=== PATIENT | female | born 1940 | race Caucasian/White ===

== ENCOUNTER 2019-04-14 07:44 | Day surgery (SDC) | payer MEDICARE ==
[2019-04-14] VITALS (11 sets, daily range): BP systolic 137–165; BP diastolic 89–110
[~2019-04-14] VITALS: Ht 152.4 cm; Wt 65.6 kg
[2019-04-14] MEDS ORDERED: normal saline 1,000 ML IV SCH (08:15)
[2019-04-14] MEDS ORDERED: iohexol 350 MG/1 ML 200ml bottle ONE (08:55)
[2019-04-14] MEDS ORDERED: heparin 1,000unit/ml 10ml vial 10 ML ONE (08:55)
[2019-04-14] MEDS ORDERED: fentaNYL/PF 50MCG/1 ML 2ML syringe ONE (08:55)
[2019-04-14] MEDS ORDERED: midazolam 2 mg/2 ml injection ONE ×3 (08:55→10:19)
[2019-04-14] MEDS ORDERED: LIDOcaine 1% (10mg/ml)w/preservative injection 20ml MDV ONE (09:25)
[2019-04-14] MEDS ORDERED: RED600TA PO (09:27)
[2019-04-14] MEDS ORDERED: METO-411 PO (09:27)
[2019-04-14] MEDS ORDERED: COU1T PO (09:27)
[2019-04-14] MEDS ORDERED: FLEC100T2 PO (09:27)
[2019-04-14] MEDS ORDERED: ENOX40SY7 SUBCUT (09:28)
[2019-04-14 09:44] LABS: BASOPHILS % (AUTO) 0.6 % (0-1); EOSINOPHILS # (AUTO) 0.1 X10'3 (0-0.9); EOSINOPHILS % (AUTO) 1.4 % (0-6); HEMATOCRIT 41.6 % (35.0-45.0); HEMOGLOBIN 13.9 g/dl (12.0-16.0); LYMPHOCYTES # (AUTO) 0.8 X10'3 (1.1-4.8); LYMPHOCYTES % (AUTO) 18.5 % (21-51); MEAN CORPUSCULAR HEMOGLOBIN 34.2 PG (27.0-31.0); MEAN CORPUSCULAR HGB CONC 33.5 g/dL (33.0-36.5); MEAN CORPUSCULAR VOLUME 102.2 FL (78-98); MONOCYTES # (AUTO) 0.7 X10'3 (0-0.9); MONOCYTES % (AUTO) 15.6 % (2-12); NEUTROPHILS # (AUTO) 2.9 X10'3 (1.8-7.7); NEUTROPHILS % (AUTO) 63.9 % (42-75); PLATELET COUNT 263 X10'3 (140-440); RED BLOOD COUNT 4.07 X10'6 (4.20-5.60); RED CELL DISTRIBUTION WIDTH 13.4 % (11.5-14.5); WHITE BLOOD COUNT 4.5 X10'3 (4.5-11.0)
[2019-04-14 10:01] LABS: ALBUMIN 3.7 G/DL (3.4-5.0); ANION GAP 5 (8-16); BLOOD UREA NITROGEN 20 MG/DL (7-18); BUN/CREATININE RATIO 23.3 (6.6-38.0); CALCIUM 9.1 MG/DL (8.5-10.1); CHLORIDE 104 MMOL/L (99-107); CHOL/HDL RATIO 2.7 (0.00-4.99); CHOLESTEROL 163 MG/DL (0-200); CREATININE 0.86 MG/DL (0.40-0.90); GLUCOSE 91 MG/DL (70-104); HDL CHOLESTEROL 61 MG/DL (35-60); LDL CHOLESTEROL 80 MG/DL (50-100); POTASSIUM 4.5 MMOL/L (3.5-5.1); SODIUM 137 MMOL/L (135-145); TOTAL CARBON DIOXIDE 27.6 MMOL/L (24-32); TRIGLYCERIDES 102 MG/DL (20-135); eGFR 64 ML/MIN
[2019-04-14] MEDS ORDERED: protamine sulfate 10mg/ml inj. ONE (10:29)
[2019-04-14] MEDS ORDERED: ketorolac tromethamine 15mg/ml inj. IV ONE (15:25)
[2019-04-14] MEDS ORDERED: acetaminophen 325mg tablet PO ONE (15:25)
== END 2019-04-14 16:40 | disposition home or self-care (01) ==
LOC: SSTAY O 07:44
PROVIDERS: ATTEND Internal Medicine Cardiovascular Disease
DX: I70.211 Atherosclerosis of native arteries of extremities with intermittent claudication, right leg (principal); I70.202 Unspecified atherosclerosis of native arteries of extremities, left leg; I48.0 Paroxysmal atrial fibrillation; Z95.0 Presence of cardiac pacemaker; I42.8 Other cardiomyopathies; E83.52 Hypercalcemia; E78.5 Hyperlipidemia, unspecified; Z79.01 Long term (current) use of anticoagulants
CPT/HCPCS: 36245; 36415; 75630; 80048; 80061; 83735; 85025; 85610; C1769; C1894; J1644; J1885; J2001; J2250; J2720; J3010; J7030; Q9967; 75716; 99152; 99153; A4620; A6258

== ENCOUNTER 2019-05-15 09:12 | Day surgery (SDC) | payer MEDICARE ==
[~2019-05-15] VITALS: Ht 149.9 cm; Wt 65.4 kg
[~2019-05-15 09:12] MED LIST: COU1T PO; ENOX40SY7 SUBCUT; FLEC100T2 PO; METO-411 PO; RED600TA PO
[2019-05-15] MEDS ORDERED: ACET650T48 PO (09:38)
[2019-05-15] MEDS ORDERED: COU5T PO (09:38)
[2019-05-15] MEDS ORDERED: areds2 PO (09:38)
[2019-05-15] MEDS ORDERED: AMIO100T4 PO (09:38)
[2019-05-15 10:07] LABS: BASOPHILS % (AUTO) 0.8 % (0-1); HEMATOCRIT 43.7 % (35.0-45.0); HEMOGLOBIN 14.8 g/dl (12.0-16.0); LYMPHOCYTES # (AUTO) 0.9 X10'3 (1.1-4.8); LYMPHOCYTES % (AUTO) 21.1 % (21-51); MEAN CORPUSCULAR HEMOGLOBIN 33.9 PG (27.0-31.0); MEAN CORPUSCULAR HGB CONC 33.9 g/dL (33.0-36.5); MEAN CORPUSCULAR VOLUME 99.8 FL (78-98); MEAN PLATELET VOLUME 8.8 FL (7.4-10.4); MONOCYTES # (AUTO) 0.6 X10'3 (0-0.9); MONOCYTES % (AUTO) 14.4 % (2-12); NEUTROPHILS # (AUTO) 2.6 X10'3 (1.8-7.7); NEUTROPHILS % (AUTO) 62.7 % (42-75); PLATELET COUNT 278 X10'3 (140-440); RED BLOOD COUNT 4.38 X10'6 (4.20-5.60); WHITE BLOOD COUNT 4.2 X10'3 (4.5-11.0)
[2019-05-15] MEDS ORDERED: proCHLORperazine 10 MG/2 ml inj ONE (10:10)
[2019-05-15] MEDS ORDERED: fentaNYL/PF 50MCG/1 ML 2ML syringe ONE (10:10)
[2019-05-15] MEDS ORDERED: midazolam 2 mg/2 ml injection ONE (10:10)
[2019-05-15 10:11] VITALS: BP 140/94
[2019-05-15] MEDS ORDERED: heparin 1,000unit/ml 10ml vial 10 ML ONE (10:11)
[2019-05-15] MEDS ORDERED: iohexol 350 MG/ML 50ML vial IV ONE (10:11)
[2019-05-15] MEDS ORDERED: iohexol 350 MG/1 ML 200ml bottle ONE (10:11)
[2019-05-15] MEDS ORDERED: LIDOcaine 1% (10mg/ml)w/preservative injection 20ml MDV ONE (10:11)
[2019-05-15 10:14] LABS: ALBUMIN 3.9 G/DL (3.4-5.0); ANION GAP 7 (8-16); BLOOD UREA NITROGEN 25 MG/DL (7-18); BUN/CREATININE RATIO 25.5 (6.6-38.0); CALCIUM 9.4 MG/DL (8.5-10.1); CHLORIDE 103 MMOL/L (99-107); CREATININE 0.98 MG/DL (0.40-0.90); GLUCOSE 103 MG/DL (70-104); MAGNESIUM 2.1 MG/DL (1.5-2.4); POTASSIUM 4.5 MMOL/L (3.5-5.1); SODIUM 137 MMOL/L (135-145); TOTAL CARBON DIOXIDE 27.2 MMOL/L (24-32); eGFR 55 ML/MIN
[2019-05-15] MEDS ORDERED: normal saline 1,000 ML IV SCH (10:25)
[2019-05-15] MEDS ORDERED: diphenhydrAMINE 25mg capsule PO PRN (10:25)
== END 2019-05-15 10:45 | disposition home or self-care (01) ==
LOC: SSTAY O 09:12
PROVIDERS: ATTEND Internal Medicine Cardiovascular Disease
DX: I73.9 Peripheral vascular disease, unspecified (principal); Z53.8 Procedure and treatment not carried out for other reasons; I10 Essential (primary) hypertension; E21.3 Hyperparathyroidism, unspecified; I48.0 Paroxysmal atrial fibrillation; I49.5 Sick sinus syndrome; E78.5 Hyperlipidemia, unspecified; Z86.711 Personal history of pulmonary embolism; Z95.0 Presence of cardiac pacemaker; Z90.710 Acquired absence of both cervix and uterus; Z98.890 Other specified postprocedural states; Z98.51 Tubal ligation status; Z87.891 Personal history of nicotine dependence; Z72.89 Other problems related to lifestyle; Z79.899 Other long term (current) drug therapy; Z79.01 Long term (current) use of anticoagulants
CPT/HCPCS: 36415; 80048; 83735; 85025; 85610; J0780; J1644; J2001; J2250; J3010; J7030; Q0163; Q9967; 93005; C1769; C1894

== ENCOUNTER 2019-05-17 06:41 | Inpatient (IN) | payer MEDICARE ==
[~2019-05-17] VITALS: Ht 149.9 cm; Wt 64.8 kg
[2019-05-17] VITALS (31 sets, daily range): BP systolic 69–134; BP diastolic 47–92
[~2019-05-17 06:41] MED LIST changes: +ACET650T48 PO; +AMIO100T4 PO; -COU1T PO; +COU5T PO; -ENOX40SY7 SUBCUT; -FLEC100T2 PO; -RED600TA PO; +areds2 PO
[2019-05-17] MEDS ORDERED: midazolam 2 mg/2 ml injection ONE ×3 (06:50→09:00)
[2019-05-17] MEDS ORDERED: fentaNYL/PF 50MCG/1 ML 2ML syringe ONE ×2 (06:50→09:42)
[2019-05-17] MEDS ORDERED: iohexol 350 MG/1 ML 200ml bottle ONE (06:50)
[2019-05-17] MEDS ORDERED: iohexol 350 MG/ML 50ML vial IV ONE (06:50)
[2019-05-17] MEDS ORDERED: heparin 1,000unit/ml 10ml vial 10 ML ONE (06:50)
[2019-05-17] MEDS ORDERED: LIDOcaine 1% (10mg/ml)w/preservative injection 20ml MDV ONE (06:50)
[2019-05-17] MEDS ORDERED: diphenhydrAMINE 25mg capsule PO ONE (07:05)
[2019-05-17] MEDS: normal saline 1000ml 1,000 ML IV SCH ×4 (07:23→22:05)
[2019-05-17] MEDS ORDERED: protamine sulfate 10mg/ml inj. ONE (10:07)
[2019-05-17] MEDS ORDERED: heparin 1,000 UNITS/NS 500ml 500 ML ONE (10:47)
[2019-05-17] MEDS ORDERED: iohexol 350MG/ML 100ml bottle IV ONE ×2 (10:48→12:53)
[2019-05-17] MEDS ORDERED: proCHLORperazine 10 MG/2 ml inj ONE (11:16)
--- NOTE | 2019-05-17 11:30 | NUR ---
Pt returned from label machine operator, Dr. Alberto at bedside. Pt with large hematoma to left chest. BP 70's will continue to monitor.
[2019-05-17] MEDS ORDERED: ondansetron/PF 4mg/2ml inj IV PRN (12:25)
[2019-05-17] MEDS ORDERED: OXAZEpam 15mg capsule PO PRN (12:25)
[2019-05-17] MEDS ORDERED: HYDROcodone/acetaminophen 5mg/325mg tablet PO PRN (12:25)
[2019-05-17] MEDS ORDERED: proCHLORperazine 10 MG/2 ml inj IV PRN (12:25)
--- NOTE | 2019-05-17 12:30 | NUR ---
Es Montes at bedside, pt to get CTA Stat.
[2019-05-17 12:32] LABS: HEMATOCRIT 29.6 % (35.0-45.0); HEMOGLOBIN 9.9 g/dl (12.0-16.0); MEAN CORPUSCULAR HEMOGLOBIN 34.3 PG (27.0-31.0); MEAN CORPUSCULAR HGB CONC 33.5 g/dL (33.0-36.5); MEAN CORPUSCULAR VOLUME 102.5 FL (78-98); PLATELET COUNT 190 X10'3 (140-440); RED BLOOD COUNT 2.89 X10'6 (4.20-5.60); RED CELL DISTRIBUTION WIDTH 13.2 % (11.5-14.5); WHITE BLOOD COUNT 10.8 X10'3 (4.5-11.0)
--- NOTE | 2019-05-17 17:30 | NUR ---
Dr. Alberto at bedside, pt remains stable. BP 100's. Pt sitting up in bed, eating. Denies pain or discomfort at this time. Void via bedpan.
[2019-05-17 18:01] LABS: HEMATOCRIT 27.4 % (35.0-45.0); HEMOGLOBIN 9.2 g/dl (12.0-16.0); MEAN CORPUSCULAR HEMOGLOBIN 34.1 PG (27.0-31.0); MEAN CORPUSCULAR HGB CONC 33.7 g/dL (33.0-36.5); MEAN CORPUSCULAR VOLUME 101.1 FL (78-98); MEAN PLATELET VOLUME 8.5 FL (7.4-10.4); PLATELET COUNT 206 X10'3 (140-440); RED BLOOD COUNT 2.71 X10'6 (4.20-5.60); WHITE BLOOD COUNT 10.4 X10'3 (4.5-11.0)
[2019-05-17] MEDS: HYDROcodone/acetaminophen 10/325mg tab PO PRN (18:13)
--- NOTE | 2019-05-17 18:45 | NUR ---
[facility].
--- NOTE | 2019-05-17 19:50 | NUR ---
Patient in room . I have received report and had the opportunity to ask questions and assume patient care.
[2019-05-17] MEDS: metoprolol tartrate 25mg tablet PO SCH (20:00)
--- NOTE | 2019-05-17 20:56 | NUR ---
PT IN ROOM 2016. PT a&Ox4. pt oriented to room, call light, bed controls, and visiting hours. post procedure education provided on pacemaker placement. pt verbalized understanding. will continue to monitor
--- NOTE | 2019-05-17 21:07 | NUR ---
pt bp trending down from 92 systolic to 79 systolic. md batista notified. orders to hold Lopressor tonight and continue fluids at 200ml/hr ns. will continue to monitor
[2019-05-18] VITALS (30 sets, daily range): BP systolic 78–126; BP diastolic 43–89
[2019-05-18] MEDS: normal saline 1000ml 1,000 ML IV SCH ×5 (03:07→23:05)
[2019-05-18 07:09] LABS: HEMATOCRIT 23.2 % (35.0-45.0); HEMOGLOBIN 7.9 g/dl (12.0-16.0); MEAN CORPUSCULAR HEMOGLOBIN 34.4 PG (27.0-31.0); MEAN CORPUSCULAR HGB CONC 33.8 g/dL (33.0-36.5); MEAN CORPUSCULAR VOLUME 101.7 FL (78-98); MEAN PLATELET VOLUME 8.9 FL (7.4-10.4); PLATELET COUNT 170 X10'3 (140-440); RED BLOOD COUNT 2.29 X10'6 (4.20-5.60); RED CELL DISTRIBUTION WIDTH 13.4 % (11.5-14.5); WHITE BLOOD COUNT 7.6 X10'3 (4.5-11.0)
[2019-05-18] MEDS: metoprolol tartrate 25mg tablet PO SCH (07:49)
[2019-05-18 08:30] LABS: ALANINE AMINOTRANSFERASE 23 U/L (12-78); ALBUMIN 2.4 G/DL (3.4-5.0); ALBUMIN/GLOBULIN RATIO 1.1 (1.1-1.5); ALKALINE PHOSPHATASE 31 IU/L (46-116); ANION GAP 10 (8-16); ASPARTATE AMINO TRANSFERASE 18 U/L (10-37); BILIRUBIN,TOTAL 0.5 MG/DL (0.1-1.0); BLOOD UREA NITROGEN 23 MG/DL (7-18); CALCIUM 6.9 MG/DL (8.5-10.1); CHLORIDE 109 MMOL/L (99-107); CREATININE 0.96 MG/DL (0.40-0.90); GLUCOSE 109 MG/DL (70-104); POTASSIUM 3.8 MMOL/L (3.5-5.1); SODIUM 140 MMOL/L (135-145); TOTAL CARBON DIOXIDE 21.2 MMOL/L (24-32); TOTAL PROTEIN 4.5 G/DL (6.4-8.2); eGFR 56 ML/MIN
[2019-05-18] MEDS ORDERED: WARF10TA50 PO (12:25)
[2019-05-18] MEDS ORDERED: WARF-55 PO ×2 (12:25→12:30)
[2019-05-18] MEDS ORDERED: WARF10TA45 PO (12:30)
[2019-05-18] MEDS ORDERED: RED600CA2 PO (12:33)
[2019-05-18 16:07] LABS: HEMATOCRIT 28.7 % (35.0-45.0); HEMOGLOBIN 9.7 g/dl (12.0-16.0); MEAN CORPUSCULAR HEMOGLOBIN 32.6 PG (27.0-31.0); MEAN CORPUSCULAR HGB CONC 33.8 g/dL (33.0-36.5); MEAN CORPUSCULAR VOLUME 96.4 FL (78-98); MEAN PLATELET VOLUME 8.8 FL (7.4-10.4); PLATELET COUNT 168 X10'3 (140-440); RED BLOOD COUNT 2.97 X10'6 (4.20-5.60); RED CELL DISTRIBUTION WIDTH 16.9 % (11.5-14.5); WHITE BLOOD COUNT 6.8 X10'3 (4.5-11.0)
[2019-05-18] MEDS ORDERED: clopidogrel 300mg tablet PO ONE (16:40)
--- NOTE | 2019-05-18 18:25 | NUR ---
per not to give NS that is ordered at 200ml/hours. Post blood transfusion pt's blood pressure is in 110/50s.
--- NOTE | 2019-05-18 18:30 | NUR ---
Patient in room CICU 2016. I have received report from MARISSA Stoll and had the opportunity to ask questions and assume patient care. Patient is awake and alert seated up in chair at bedside. Patient denies any distress at this time. Call light in reach, non skid socks on. Patient educated on use of call light. Patient states she would like to wait for dinner trays to arrive.
--- NOTE | 2019-05-18 19:00 | NUR ---
Patient up moving herself back to bed. Patient assisted the remainder of the way. Education provided on use of call light. Patient agrees to use call light from now on.
[2019-05-18] MEDS: flecainide 50mg tablet PO SCH (20:00)
--- NOTE | 2019-05-18 20:01 | NUR ---
Phone call to Dr. Alberto. Patient states she does not take the Flecainide per her cardiologists order. She was changed to Amiodarone and Metoprolol. Per Dr. Alberto. D/C Flecainide and start Amiodarone 100mg 1 PO Daily.
[2019-05-18] MEDS: HYDROcodone/acetaminophen 10/325mg tab PO PRN (22:46)
[2019-05-19] VITALS (12 sets, daily range): BP systolic 111–144; BP diastolic 53–82
[2019-05-19] MEDS: normal saline 1000ml 1,000 ML IV SCH ×2 (04:05→09:05)
[2019-05-19 05:23] LABS: BASOPHILS % (AUTO) 0.4 % (0-1); EOSINOPHILS # (AUTO) 0.1 X10'3 (0-0.9); EOSINOPHILS % (AUTO) 1.3 % (0-6); HEMATOCRIT 25.9 % (35.0-45.0); LYMPHOCYTES # (AUTO) 1.1 X10'3 (1.1-4.8); LYMPHOCYTES % (AUTO) 21.4 % (21-51); MEAN CORPUSCULAR HEMOGLOBIN 33.2 PG (27.0-31.0); MEAN CORPUSCULAR HGB CONC 34.8 g/dL (33.0-36.5); MEAN CORPUSCULAR VOLUME 95.4 FL (78-98); MONOCYTES # (AUTO) 0.8 X10'3 (0-0.9); MONOCYTES % (AUTO) 15.1 % (2-12); NEUTROPHILS # (AUTO) 3.3 X10'3 (1.8-7.7); NEUTROPHILS % (AUTO) 61.8 % (42-75); PLATELET COUNT 164 X10'3 (140-440); RED BLOOD COUNT 2.72 X10'6 (4.20-5.60); RED CELL DISTRIBUTION WIDTH 17.3 % (11.5-14.5); WHITE BLOOD COUNT 5.3 X10'3 (4.5-11.0)
[2019-05-19 05:31] LABS: ALBUMIN 2.7 G/DL (3.4-5.0); ANION GAP 10 (8-16); BLOOD UREA NITROGEN 13 MG/DL (7-18); BUN/CREATININE RATIO 17.3 (6.6-38.0); CALCIUM 6.8 MG/DL (8.5-10.1); CHLORIDE 108 MMOL/L (99-107); CREATININE 0.75 MG/DL (0.40-0.90); GLUCOSE 98 MG/DL (70-104); POTASSIUM 3.8 MMOL/L (3.5-5.1); SODIUM 138 MMOL/L (135-145); TOTAL CARBON DIOXIDE 20.1 MMOL/L (24-32); eGFR 75 ML/MIN
--- NOTE | 2019-05-19 06:30 | NUR ---
Problems reprioritized. Patient report given, questions answered & plan of care reviewed with MARISSA Stoll.
[2019-05-19] MEDS ORDERED: pantoprazole 40mg Tablet.DR PO SCH (07:30)
[2019-05-19] MEDS: flecainide 50mg tablet PO SCH (08:00)
[2019-05-19] MEDS ORDERED: clopidogrel 75mg tablet PO SCH (08:00)
[2019-05-19] MEDS ORDERED: amiodarone 100mg tablet PO SCH (08:00)
[2019-05-19] MEDS ORDERED: CLOP75TA35 PO (10:53)
[2019-05-19] MEDS ORDERED: FERR325T32 PO (11:00)
[2019-05-19] MEDS ORDERED: COU3T PO (11:00)
--- NOTE | 2019-05-19 12:10 | NUR ---
Pt discharged to home at 1155. Accompanied with . In stable condition, discharge instruction provided, New meds called to pharmacy.
== END 2019-05-19 11:45 | disposition home or self-care (01) | DRG 908 ==
LOC: SSTAY O 06:41 → CICU 2S 20:23
PROVIDERS: ADMIT Internal Medicine Cardiovascular Disease; ATTEND Internal Medicine Cardiovascular Disease
PROC: 04CH3ZZ Extirpation of Matter from Right External Iliac Artery, Percutaneous Approach (ICD-10-PCS; 2019-05-17)
PROC: 04CK3ZZ Extirpation of Matter from Right Femoral Artery, Percutaneous Approach (ICD-10-PCS; 2019-05-17)
PROC: 047K3DZ Dilation of Right Femoral Artery with Intraluminal Device, Percutaneous Approach (ICD-10-PCS; 2019-05-17)
PROC: 047H3DZ Dilation of Right External Iliac Artery with Intraluminal Device, Percutaneous Approach (ICD-10-PCS; 2019-05-17)
PROC: 03763DZ Dilation of Left Axillary Artery with Intraluminal Device, Percutaneous Approach (ICD-10-PCS; 2019-05-17)
PROC: 30233N1 Transfusion of Nonautologous Red Blood Cells into Peripheral Vein, Percutaneous Approach (ICD-10-PCS; principal; 2019-05-18)
DX: I97.621 Postprocedural hematoma of a circulatory system organ or structure following other procedure (principal); I48.3 Typical atrial flutter; D68.59 Other primary thrombophilia; I42.8 Other cardiomyopathies; I70.211 Atherosclerosis of native arteries of extremities with intermittent claudication, right leg; I48.0 Paroxysmal atrial fibrillation; I34.0 Nonrheumatic mitral (valve) insufficiency; I49.5 Sick sinus syndrome; I35.8 Other nonrheumatic aortic valve disorders; D21.9 Benign neoplasm of connective and other soft tissue, unspecified; E83.52 Hypercalcemia; E78.5 Hyperlipidemia, unspecified; Z95.0 Presence of cardiac pacemaker; Z79.01 Long term (current) use of anticoagulants; Y92.89 Other specified places as the place of occurrence of the external cause
CPT/HCPCS: 36215; 36245; 36415; 37221; 37227; 37236; 73206; 80048; 80053; 84132; 85025; 85027; 85347; 86885; 86900; 86901; 86920; 99152; 99153; A4620; A6258; C1714; C1725; C1760; C1769; C1876; C1887; C1894; C2623; G0378; J0780; J1644; J2001; J2250; J2405; J2720; J3010; J7030; P9016; Q0163; Q9967

== ENCOUNTER 2019-06-23 10:50 | Day surgery (SDC) | payer MEDICARE ==
[~2019-06-23] VITALS: Ht 154.9 cm; Wt 64.2 kg
[2019-06-23] VITALS (18 sets, daily range): BP systolic 127–164; BP diastolic 76–96
[~2019-06-23 10:50] MED LIST changes: +CLOP75TA35 PO; +COU3T PO; -COU5T PO; +FERR325T32 PO; -METO-411 PO; +RED600CA2 PO; +WARF-55 PO
[2019-06-23] MEDS ORDERED: fentaNYL/PF 50MCG/1 ML 2ML syringe IV ONE (11:10)
[2019-06-23] MEDS ORDERED: MIDAZolam 5mg/ml 2ml vial IV ONE (11:10)
[2019-06-23 11:39] LABS: BASOPHILS % (AUTO) 0.6 % (0-1); EOSINOPHILS # (AUTO) 0.1 X10'3 (0-0.9); EOSINOPHILS % (AUTO) 1.4 % (0-6); HEMATOCRIT 30.7 % (35.0-45.0); HEMOGLOBIN 10.5 g/dl (12.0-16.0); LYMPHOCYTES # (AUTO) 0.9 X10'3 (1.1-4.8); MEAN CORPUSCULAR HEMOGLOBIN 35.8 PG (27.0-31.0); MEAN CORPUSCULAR HGB CONC 34.1 g/dL (33.0-36.5); MEAN CORPUSCULAR VOLUME 105.2 FL (78-98); MEAN PLATELET VOLUME 7.5 FL (7.4-10.4); MONOCYTES # (AUTO) 0.7 X10'3 (0-0.9); MONOCYTES % (AUTO) 17.2 % (2-12); NEUTROPHILS # (AUTO) 2.2 X10'3 (1.8-7.7); NEUTROPHILS % (AUTO) 57.8 % (42-75); PLATELET COUNT 429 X10'3 (140-440); RED BLOOD COUNT 2.92 X10'6 (4.20-5.60); RED CELL DISTRIBUTION WIDTH 18.5 % (11.5-14.5); WHITE BLOOD COUNT 3.9 X10'3 (4.5-11.0)
[2019-06-23 11:50] LABS: ALBUMIN 3.7 G/DL (3.4-5.0); ANION GAP 8 (8-16); BLOOD UREA NITROGEN 23 MG/DL (7-18); BUN/CREATININE RATIO 22.3 (6.6-38.0); CALCIUM 9.8 MG/DL (8.5-10.1); CHLORIDE 103 MMOL/L (99-107); CREATININE 1.03 MG/DL (0.40-0.90); GLUCOSE 94 MG/DL (70-104); POTASSIUM 4.3 MMOL/L (3.5-5.1); SODIUM 137 MMOL/L (135-145); TOTAL CARBON DIOXIDE 26.4 MMOL/L (24-32); eGFR 52 ML/MIN
--- NOTE | 2019-06-23 13:25 | NUR ---
Notified dr. Alberto of 4.8 INR critical lab, no new orders at this time. He states he will tell her to stop taking her coumadin for a few days when he comes in for Cardioversion.
== END 2019-06-23 16:55 | disposition home or self-care (01) ==
LOC: SSTAY O 10:50
PROVIDERS: ATTEND Internal Medicine Cardiovascular Disease
DX: I48.0 Paroxysmal atrial fibrillation (principal); I48.3 Typical atrial flutter; I10 Essential (primary) hypertension; E21.3 Hyperparathyroidism, unspecified; E78.5 Hyperlipidemia, unspecified; Z86.711 Personal history of pulmonary embolism; Z79.01 Long term (current) use of anticoagulants; Z79.899 Other long term (current) drug therapy; Z95.0 Presence of cardiac pacemaker
CPT/HCPCS: 80048; 83735; 85025; 85610; 92960; J2250; J3010

== ENCOUNTER 2019-07-27 07:51 | Day surgery (SDC) | payer MEDICARE ==
[~2019-07-27] VITALS: Ht 154.9 cm; Wt 60.6 kg
[2019-07-27] VITALS (13 sets, daily range): BP systolic 120–149; BP diastolic 57–100
[~2019-07-27 07:51] MED LIST changes: -ACET650T48 PO; -CLOP75TA35 PO; -COU3T PO; -FERR325T32 PO; -RED600CA2 PO; -areds2 PO
[2019-07-27] MEDS ORDERED: normal saline 1,000 ML IV SCH (08:15)
[2019-07-27] MEDS ORDERED: diphenhydrAMINE 25mg capsule PO PRN (08:15)
[2019-07-27] MEDS ORDERED: RED600TA PO (08:37)
[2019-07-27] MEDS ORDERED: midazolam 2 mg/2 ml injection ONE (08:54)
[2019-07-27] MEDS ORDERED: fentaNYL/PF 50MCG/1 ML 2ML syringe ONE (08:54)
[2019-07-27] MEDS ORDERED: iohexol 350 MG/ML 50ML vial IV ONE (08:55)
[2019-07-27] MEDS ORDERED: LIDOcaine 1% (10mg/ml)w/preservative injection 20ml MDV ONE (08:55)
[2019-07-27] MEDS ORDERED: iohexol 350MG/ML 100ml bottle IV ONE (08:55)
[2019-07-27 09:29] LABS: BASOPHILS % (AUTO) 0.8 % (0-1); EOSINOPHILS # (AUTO) 0.1 X10'3 (0-0.9); EOSINOPHILS % (AUTO) 2.1 % (0-6); HEMATOCRIT 37.9 % (35.0-45.0); HEMOGLOBIN 12.6 g/dl (12.0-16.0); LYMPHOCYTES # (AUTO) 0.9 X10'3 (1.1-4.8); LYMPHOCYTES % (AUTO) 21.6 % (21-51); MEAN CORPUSCULAR HEMOGLOBIN 32.5 PG (27.0-31.0); MEAN CORPUSCULAR HGB CONC 33.1 g/dL (33.0-36.5); MEAN PLATELET VOLUME 8.6 FL (7.4-10.4); MONOCYTES # (AUTO) 0.7 X10'3 (0-0.9); MONOCYTES % (AUTO) 15.6 % (2-12); NEUTROPHILS # (AUTO) 2.5 X10'3 (1.8-7.7); NEUTROPHILS % (AUTO) 59.9 % (42-75); PLATELET COUNT 422 X10'3 (140-440); RED BLOOD COUNT 3.87 X10'6 (4.20-5.60); RED CELL DISTRIBUTION WIDTH 15.8 % (11.5-14.5); WHITE BLOOD COUNT 4.2 X10'3 (4.5-11.0)
[2019-07-27 09:32] LABS: ALBUMIN 4.2 G/DL (3.4-5.0); ANION GAP 7 (8-16); BLOOD UREA NITROGEN 22 MG/DL (7-18); BUN/CREATININE RATIO 19.8 (6.6-38.0); CALCIUM 9.9 MG/DL (8.5-10.1); CHLORIDE 102 MMOL/L (99-107); CREATININE 1.11 MG/DL (0.40-0.90); GLUCOSE 97 MG/DL (70-104); MAGNESIUM 2.2 MG/DL (1.5-2.4); POTASSIUM 4.6 MMOL/L (3.5-5.1); SODIUM 138 MMOL/L (135-145); TOTAL CARBON DIOXIDE 29.1 MMOL/L (24-32); eGFR 48 ML/MIN
[2019-07-27] MEDS ORDERED: diphenhydrAMINE 50 mg/ml inj ONE (09:38)
[2019-07-27] MEDS ORDERED: metoprolol tartrate 1mg/ml inj IV ONE ×3 (09:45→09:58)
[2019-07-27] MEDS ORDERED: heparin 1,000unit/ml 10ml vial 10 ML ONE (09:55)
[2019-07-27] MEDS ORDERED: clopidogrel 300mg tablet ONE (10:45)
[2019-07-27] MEDS ORDERED: normal saline 1000ml 1,000 ML IV SCH (12:05)
[2019-07-27] MEDS ORDERED: HYDROcodone/acetaminophen 5mg/325mg tablet PO PRN (15:55)
[2019-07-27] MEDS ORDERED: HYDROcodone/acetaminophen 10/325mg tab PO PRN (16:00)
== END 2019-07-27 18:25 | disposition home or self-care (01) ==
LOC: SSTAY O 07:51
PROVIDERS: ATTEND Internal Medicine Cardiovascular Disease
DX: I70.8 Atherosclerosis of other arteries (principal); I10 Essential (primary) hypertension; I48.0 Paroxysmal atrial fibrillation; E83.52 Hypercalcemia; E78.5 Hyperlipidemia, unspecified; Z95.0 Presence of cardiac pacemaker; Z86.711 Personal history of pulmonary embolism; Z90.710 Acquired absence of both cervix and uterus; Z98.890 Other specified postprocedural states; Z72.89 Other problems related to lifestyle; Z79.01 Long term (current) use of anticoagulants
CPT/HCPCS: 36215; 36415; 37246; 75710; 80048; 83735; 85025; 85610; 93005; C1725; C1769; C1887; C1894; J1200; J1644; J2001; J2250; J3010; J7030; Q9967; 99152; 99153; A4620; A6258; C1760; C2623; J3490

== ENCOUNTER 2020-02-26 07:52 | Day surgery (SDC) | payer MEDICARE ==
[2020-02-26] VITALS (9 sets, daily range): BP systolic 109–128; BP diastolic 67–84
[~2020-02-26] VITALS: Ht 154.9 cm; Wt 61.3 kg
[~2020-02-26 07:52] MED LIST changes: +RED600TA PO
[2020-02-26] MEDS ORDERED: diphenhydrAMINE 25mg capsule PO PRN (08:15)
[2020-02-26] MEDS ORDERED: normal saline 1,000 ML IV SCH (08:15)
[2020-02-26] MEDS ORDERED: iohexol 350MG/ML 100ml bottle IV ONE (09:04)
[2020-02-26] MEDS ORDERED: fentaNYL/PF 50MCG/1 ML 2ML syringe ONE (09:04)
[2020-02-26] MEDS ORDERED: midazolam 2 mg/2 ml injection ONE ×2 (09:04→10:19)
[2020-02-26] MEDS ORDERED: heparin 1,000unit/ml 10ml vial 10 ML ONE (09:04)
[2020-02-26] MEDS ORDERED: LIDOcaine 1% (10mg/ml)w/preservative injection 20ml MDV ONE (09:04)
[2020-02-26 09:21] LABS: BASOPHILS # (AUTO) 0.1 X10'3 (0-0.2); BASOPHILS % (AUTO) 0.3 % (0-1); EOSINOPHILS % (AUTO) 0 % (0-6); HEMATOCRIT 33.3 % (35.0-45.0); LYMPHOCYTES # (AUTO) 0.2 X10'3 (1.1-4.8); MEAN CORPUSCULAR HEMOGLOBIN 30.2 PG (27.0-31.0); MEAN CORPUSCULAR VOLUME 91.7 FL (78-98); MEAN PLATELET VOLUME 8.4 FL (7.4-10.4); MONOCYTES # (AUTO) 0.1 X10'3 (0-0.9); MONOCYTES % (AUTO) 0.7 % (2-12); NEUTROPHILS # (AUTO) 19.7 X10'3 (1.8-7.7); PLATELET COUNT 265 X10'3 (140-440); RED BLOOD COUNT 3.63 X10'6 (4.20-5.60); RED CELL DISTRIBUTION WIDTH 18.9 % (11.5-14.5); WHITE BLOOD COUNT 20.1 X10'3 (4.5-11.0)
[2020-02-26] MEDS ORDERED: METO50TA17 PO (09:26)
[2020-02-26] MEDS ORDERED: AMLO5TAB4 PO (09:26)
[2020-02-26] MEDS ORDERED: CALC-336 PO (09:26)
[2020-02-26] MEDS ORDERED: BETA1TAB20 PO (09:26)
[2020-02-26] MEDS ORDERED: WARF-113 PO (09:26)
[2020-02-26 09:31] LABS: ALBUMIN 3.1 G/DL (3.4-5.0); ANION GAP 10 (8-16); BLOOD UREA NITROGEN 22 MG/DL (7-18); BUN/CREATININE RATIO 22.7 (6.6-38.0); CALCIUM 8.9 MG/DL (8.5-10.1); CHLORIDE 101 MMOL/L (99-107); CREATININE 0.97 MG/DL (0.40-0.90); GLUCOSE 139 MG/DL (70-104); MAGNESIUM 2.2 MG/DL (1.5-2.4); POTASSIUM 4.2 MMOL/L (3.5-5.1); SODIUM 137 MMOL/L (135-145); TOTAL CARBON DIOXIDE 26.2 MMOL/L (24-32); eGFR 55 ML/MIN
[2020-02-26] MEDS ORDERED: clopidogrel 300mg tablet ONE (10:38)
[2020-02-26] MEDS ORDERED: normal saline 1000ml 1,000 ML IV SCH (11:40)
--- NOTE | 2020-02-26 12:25 | NUR ---
Pt in a flutter (with known hx) rate up as high as 160-180, non-sustained but frequent. bp's stable. Msg left for Dr Alberto
[2020-02-26] MEDS ORDERED: metoprolol tartrate 1mg/ml inj IV SCH (13:15)
[2020-02-26] MEDS ORDERED: metoprolol tartrate 1mg/ml inj IV ONE (14:20)
== END 2020-02-26 16:00 | disposition home or self-care (01) ==
LOC: SSTAY O 07:52
PROVIDERS: ATTEND Internal Medicine Cardiovascular Disease
DX: I77.1 Stricture of artery (principal); I73.9 Peripheral vascular disease, unspecified; Z95.0 Presence of cardiac pacemaker
CPT/HCPCS: 37236; 80048; 83735; 85025; 85610; 93005; C1725; C1760; C1769; C1876; C1887; C1894; J1644; J2001; J2250; J3010; Q9967; 36215; 99152; 99153; A4620; A6258; J3490

== ENCOUNTER 2020-12-02 07:26 | Day surgery (SDC) | payer MEDICARE ==
[~2020-12-02] VITALS: Ht 154.9 cm; Wt 53.0 kg
[2020-12-02] VITALS (16 sets, daily range): BP systolic 144–165; BP diastolic 90–102
[~2020-12-02 07:26] MED LIST changes: +AMLO5TAB4 PO; +BETA1TAB20 PO; +CALC-336 PO; +METO50TA17 PO; +WARF-113 PO; -WARF-55 PO
[2020-12-02] MEDS ORDERED: diphenhydrAMINE 25mg capsule PO PRN (07:50)
[2020-12-02] MEDS ORDERED: normal saline 1,000 ML IV SCH (07:50)
[2020-12-02] MEDS ORDERED: CALC600T21 PO (08:02)
[2020-12-02] MEDS ORDERED: APIX5TAB3 PO (08:02)
[2020-12-02] MEDS ORDERED: TRAZ-251 PO (08:02)
[2020-12-02] MEDS ORDERED: HYDR-3686 PO (08:02)
[2020-12-02] MEDS ORDERED: POTA8CAP20 PO (08:02)
[2020-12-02] MEDS ORDERED: BUME0.5T6 PO (08:02)
[2020-12-02] MEDS ORDERED: DENO60DI SUBCUT (08:02)
[2020-12-02] MEDS ORDERED: CLOP75TA15 PO (08:02)
[2020-12-02 08:28] LABS: ALBUMIN 3.7 G/DL (3.4-5.0); ANION GAP 11 (8-16); BLOOD UREA NITROGEN 26 MG/DL (7-18); BUN/CREATININE RATIO 25.2 (6.6-38.0); CALCIUM 9.3 MG/DL (8.5-10.1); CHLORIDE 105 MMOL/L (99-107); CREATININE 1.03 MG/DL (0.40-0.90); GLUCOSE 107 MG/DL (70-104); MAGNESIUM 2.2 MG/DL (1.5-2.4); POTASSIUM 4.1 MMOL/L (3.5-5.1); SODIUM 141 MMOL/L (135-145); TOTAL CARBON DIOXIDE 25.5 MMOL/L (24-32); eGFR 52 ML/MIN
[2020-12-02 08:30] LABS: BASOPHILS % (AUTO) 0.8 % (0-1); EOSINOPHILS % (AUTO) 0.8 % (0-6); HEMATOCRIT 36.7 % (35.0-45.0); HEMOGLOBIN 11.8 g/dl (12.0-16.0); LYMPHOCYTES # (AUTO) 0.7 X10'3 (1.1-4.8); LYMPHOCYTES % (AUTO) 20.3 % (21-51); MEAN CORPUSCULAR HEMOGLOBIN 34.5 PG (27.0-31.0); MEAN CORPUSCULAR HGB CONC 32.1 g/dL (33.0-36.5); MEAN CORPUSCULAR VOLUME 107.4 FL (78-98); MEAN PLATELET VOLUME 8.1 FL (7.4-10.4); MONOCYTES # (AUTO) 0.6 X10'3 (0-0.9); MONOCYTES % (AUTO) 18.5 % (2-12); NEUTROPHILS % (AUTO) 59.6 % (42-75); PLATELET COUNT 311 X10'3 (140-440); RED BLOOD COUNT 3.42 X10'6 (4.20-5.60); RED CELL DISTRIBUTION WIDTH 17.4 % (11.5-14.5); WHITE BLOOD COUNT 3.3 X10'3 (4.5-11.0)
[2020-12-02] MEDS ORDERED: midazolam 1 mg/ML 2ml injection ONE (08:42)
[2020-12-02] MEDS ORDERED: fentaNYL/PF 50MCG/1 ML 2ML syringe ONE ×2 (08:42→10:12)
[2020-12-02] MEDS ORDERED: heparin 1,000unit/ml 10ml vial 10 ML ONE (08:42)
[2020-12-02] MEDS ORDERED: LIDOcaine 1% (10mg/ml)w/preservative injection 20ml MDV ONE (08:42)
[2020-12-02] MEDS ORDERED: iohexol 350MG/ML 100ml bottle IV ONE (08:43)
[2020-12-02 09:56] LABS: TOTAL CELLS COUNTED 100
[2020-12-02 09:58] LABS: ANISOCYTOSIS 1+; PLATELET ESTIMATE NORMAL
[2020-12-02] MEDS ORDERED: clopidogrel 300mg tablet ONE (10:30)
[2020-12-02] MEDS ORDERED: metoprolol tartrate 50mg tablet PO SCH (11:08)
[2020-12-02] MEDS ORDERED: normal saline 1000ml 1,000 ML IV SCH (11:25)
[2020-12-02] MEDS ORDERED: HYDROcodone/acetaminophen 5mg/325mg tablet PO PRN (11:25)
[2020-12-02] MEDS ORDERED: proCHLORperazine 10 MG/2 ml inj IV PRN (11:25)
[2020-12-02] MEDS ORDERED: ondansetron/PF 4mg/2ml inj IV PRN (11:25)
[2020-12-02] MEDS ORDERED: HYDROcodone/acetaminophen 10/325mg tab PO PRN (11:25)
== END 2020-12-02 17:20 | disposition home or self-care (01) ==
LOC: SSTAY O 07:26
PROVIDERS: ATTEND Internal Medicine Cardiovascular Disease
DX: T82.856A Stenosis of peripheral vascular stent, initial encounter (principal); I48.3 Typical atrial flutter; I48.0 Paroxysmal atrial fibrillation; I42.8 Other cardiomyopathies; I08.0 Rheumatic disorders of both mitral and aortic valves; D68.59 Other primary thrombophilia; I10 Essential (primary) hypertension; E83.52 Hypercalcemia; E78.5 Hyperlipidemia, unspecified; Z79.01 Long term (current) use of anticoagulants; Z95.0 Presence of cardiac pacemaker; Z79.899 Other long term (current) drug therapy; Z87.891 Personal history of nicotine dependence; Z72.89 Other problems related to lifestyle; Z88.8 Allergy status to other drugs, medicaments and biological substances; Z86.711 Personal history of pulmonary embolism; Z98.890 Other specified postprocedural states; Z98.49 Cataract extraction status, unspecified eye; Z82.49 Family history of ischemic heart disease and other diseases of the circulatory system; Y83.8 Other surgical procedures as the cause of abnormal reaction of the patient, or of later complication, without mention of misadventure at the time of the procedure; Y92.89 Other specified places as the place of occurrence of the external cause
CPT/HCPCS: 36415; 37246; 80048; 83735; 85025; 85610; 93005; 99152; 99153; C1725; C1751; C1760; C1769; C1887; C1894; J1644; J2001; J2250; J3010; J7030; Q0163; Q9967; 36225; 85007; A4620; A6258; C2623

== ENCOUNTER 2024-05-17 09:05 | Day surgery (SDC) | payer MEDICARE ==
[2024-05-16 13:19] LABS: ALBUMIN 3.8 G/DL (3.4-5.0); ANION GAP 5 (8-16); BASOPHILS % (AUTO) 0.7 % (0-1); BLOOD UREA NITROGEN 24 MG/DL (7-18); BUN/CREATININE RATIO 22.9 (10.0-20.0); CALCIUM 10.1 MG/DL (8.5-10.1); CHLORIDE 100 MMOL/L (99-107); CREATININE 1.05 MG/DL (0.40-0.90); EOSINOPHILS # (AUTO) 0.1 X10'3 (0-0.9); EOSINOPHILS % (AUTO) 1.2 % (0-6); GLUCOSE 104 MG/DL (70-104); HEMATOCRIT 41.2 % (35.0-45.0); HEMOGLOBIN 13.8 g/dl (12.0-16.0); LYMPHOCYTES # (AUTO) 1.3 X10'3 (1.1-4.8); MEAN CORPUSCULAR HGB CONC 33.5 g/dL (33.0-36.5); MEAN CORPUSCULAR VOLUME 104.4 FL (78-98); MEAN PLATELET VOLUME 8.2 FL (7.4-10.4); MONOCYTES % (AUTO) 19.2 % (2-12); NEUTROPHILS # (AUTO) 2.9 X10'3 (1.8-7.7); NEUTROPHILS % (AUTO) 54.9 % (42-75); PLATELET COUNT 320 X10'3 (140-440); POTASSIUM 4.2 MMOL/L (3.5-5.1); RED BLOOD COUNT 3.95 X10'6 (4.20-5.60); RED CELL DISTRIBUTION WIDTH 13.5 % (11.5-14.5); SODIUM 138 MMOL/L (135-145); TOTAL CARBON DIOXIDE 33.1 MMOL/L (24-32); WHITE BLOOD COUNT 5.2 X10'3 (4.5-11.0); eGFR 50 ML/MIN
[2024-05-16 13:38] LABS: PLATELET ESTIMATE NORMAL; TOTAL CELLS COUNTED 100
[2024-05-16 13:41] LABS: APTT 24 SECONDS (22-32); PROTHROMBIN TIME 10.3 SECONDS (9.0-12.0)
[2024-05-17] VITALS (11 sets, daily range): BP systolic 132–184; BP diastolic 61–98; PULSE 63–84; RESP 16; TEMP 97.4; O2SAT 95–98
[~2024-05-17] VITALS: Ht 147.3 cm; Wt 56.6 kg
[~2024-05-17 09:05] MED LIST changes: -AMLO5TAB4 PO; +APIX5TAB3 PO; +BUME0.5T6 PO; -CALC-336 PO; +CALC600T21 PO; +CLOP75TA15 PO; +DENO60DI SUBCUT; +HYDR-3686 PO; +POTA8CAP20 PO; +TRAZ-251 PO; -WARF-113 PO
[2024-05-17] MEDS ORDERED: MULT-1085 PO (09:26)
[2024-05-17] MEDS ORDERED: cefazolin 2gm/D5W 100mL 100 ML IV ONE (09:40)
[2024-05-17] MEDS ORDERED: midazolam 1 mg/ML 2ml injection ONE (10:37)
[2024-05-17] MEDS ORDERED: ceFAZolin 1000mg inj ONE (10:37)
[2024-05-17] MEDS ORDERED: LIDOcaine 1% W/epiNEPHrine 1:100,000 20ml vial ONE (10:37)
[2024-05-17] MEDS ORDERED: fentaNYL/PF 50MCG/1 ML 2ML syringe ONE (10:37)
[2024-05-17] MEDS ORDERED: CEPH250T PO ×2 (13:12→13:15)
[2024-05-17] MEDS: vancomycin/NS 1 GM ADD-VANTAGE 250 ML X 1 DOSE IV ONE (13:53)
[2024-05-17] MEDS ORDERED: HYDROcodone/acetaminophen 10/325mg tab PO ONE (15:05)
[2024-05-17] MEDS: acetaminophen 325mg tablet PO ONE (15:18)
== END 2024-05-17 17:00 | disposition home or self-care (01) ==
LOC: SSTAY O 09:05
PROVIDERS: ATTEND Internal Medicine Cardiovascular Disease
DX: Z45.010 Encounter for checking and testing of cardiac pacemaker pulse generator [battery] (principal); I11.0 Hypertensive heart disease with heart failure; I50.9 Heart failure, unspecified; I25.10 Atherosclerotic heart disease of native coronary artery without angina pectoris; I48.91 Unspecified atrial fibrillation; E89.2 Postprocedural hypoparathyroidism; I34.0 Nonrheumatic mitral (valve) insufficiency; I73.9 Peripheral vascular disease, unspecified; Z79.01 Long term (current) use of anticoagulants; Z79.02 Long term (current) use of antithrombotics/antiplatelets; Z79.899 Other long term (current) drug therapy; Z90.710 Acquired absence of both cervix and uterus; Z98.890 Other specified postprocedural states; Z88.8 Allergy status to other drugs, medicaments and biological substances; Z82.49 Family history of ischemic heart disease and other diseases of the circulatory system; Z82.3 Family history of stroke; Z81.8 Family history of other mental and behavioral disorders
CPT/HCPCS: 33228; 36415; 80048; 85025; 85610; 85730; 93005; 99152; 99153; A6258; A6402; C1785; J0690; J2250; J3010; J3370; J3490; Z7610; 85007; A6449; J7030